=== PATIENT | female | born 1980 | race Caucasian/White ===

== ENCOUNTER 2020-06-13 16:43 | Inpatient (IN) | payer OTHER ==
[~2020-06-13] VITALS: Ht 162.6 cm; Wt 110.2 kg
[2020-06-13] MEDS ORDERED: DEXAMETHASONE SOD PHOSPHATE 10 MG/ML VIAL IV ONE (17:00)
--- NOTE | 2020-06-13 17:00 | NUR ---
[email or web address] home, worsening cough/sob. sts "passed out" this am. covid + last . On room air, breathing evenly and unlabored. Connected to the monitor and pulse ox. Kept comfortable, will continue to monitor accordingly.
[2020-06-13] MEDS ORDERED: DEXAMETHASONE SOD PHOSPHATE 10 MG/ML VIAL ONE (17:11)
[2020-06-13 17:28] LABS: ABG BASE EXCESS -1.1 mmol/L; ABG OXYGEN SATURATION 97.2 % (92.0-98.5); ABG PCO2 31.6 mmHg (35.0-45.0); ABG PH 7.458 (7.350-7.450); ABG PO2 99.7 mmHg (75.0-100.0); AaDO2 62.7 mmHg; COHb 0.3 % (0.5-1.5); MetHb 0.4 % (0.0-1.5); O2Hb 96.5 % (94.0-97.0); SITE, ABG Right Radial; VENT MODE, BG NASAL CANNULA
[2020-06-13] MEDS ORDERED: MONT10TA22 PO (17:34)
[2020-06-13] MEDS ORDERED: FOLI0.8T PO (17:34)
[2020-06-13] MEDS ORDERED: LEVO50TA8 PO (17:34)
[2020-06-13] MEDS ORDERED: FLUO40CA49 PO (17:34)
[2020-06-13] MEDS ORDERED: LOSA50TA39 PO (17:34)
[2020-06-13 18:05] LABS: CREATINE KINASE, TOTAL 13 U/L (26-192); FERRITIN 89 ng/mL (8-388)
--- NOTE | 2020-06-13 18:10 | NUR ---
URINE SAMPLE SENT TO LAB
[2020-06-13 18:19] LABS: BILIRUBIN,URINE Negative (NEGATIVE); COLOR,URINE YELLOW (YELLOW); LEUKOCYTE ESTERASE ,URINE Negative (NEGATIVE); NITRITE, URINE Negative (NEGATIVE); PH,URINE 6.5 (5.0-8.0); PROTEIN,URINE 30 mg/dl (NEGATIVE); UGLUCOSE Negative (NEGATIVE)
[2020-06-13] MEDS ORDERED: MAGNESIUM HYDROXIDE 30 ML UDC PO PRN (18:30)
[2020-06-13] MEDS ORDERED: ZOLPIDEM TARTRATE 5 MG TABLET PO PRN (18:30)
[2020-06-13] MEDS ORDERED: ONDANSETRON HCL/PF 4 MG/2 ML VIAL IVP PRN (18:30)
[2020-06-13] MEDS ORDERED: Z GUARD REMEDY 2 OZ OINT TP PRN (18:30)
[2020-06-13] MEDS ORDERED: HYDROCODONE/APAP 5/325MG TABLET PO PRN (18:30)
[2020-06-13 18:32] LABS: C-REACTIVE PROTEIN 11.2 mg/dL (0.0-0.9)
[2020-06-13 18:34] LABS: BASOPHILS # (AUTO) 0.1 /CMM (0.0-0.2); BASOPHILS % (AUTO) 0.3 % (0.0-2.0); EOSINOPHILS % (AUTO) 0.1 % (0.0-6.0); HEMATOCRIT 40 % (33-45); HEMOGLOBIN 13.2 g/dL (11.5-14.8); LYMPHOCYTES # (AUTO) 1.6 /CMM (0.8-4.8); LYMPHOCYTES % (AUTO) 10.5 % (20.0-44.0); MEAN CORPUSCULAR HGB CONC 33 g/dl (31.0-36.0); MEAN CORPUSCULAR VOLUME 88 fL (82-100); MONOCYTES # (AUTO) 0.4 /CMM (0.1-1.30); MONOCYTES % (AUTO) 2.6 % (2.0-12.0); NEUTROPHILS # (AUTO) 13.5 /CMM (1.8-8.9); NEUTROPHILS % (AUTO) 86.5 % (43.0-81.0); PLATELET COUNT (AUTO) 236 /CMM (150-450); RED BLOOD CELL COUNT(AUTO) 4.57 MIL/uL (4.0-5.2); WHITE BLOOD COUNT (AUTO) 15.6 K/uL (4.3-11.0)
[2020-06-13 18:39] LABS: CALCIUM, SERUM 8.2 mg/dL (8.5-10.1); CARBON DIOXIDE 27 mmol/L (21-32); CHLORIDE 99 mmol/L (98-107); GLUCOSE 129 mg/dL (74-106); POTASSIUM 3.3 mmol/L (3.5-5.1); SODIUM SERUM 137 mmol/L (136-145); UREA NITROGEN, BLOOD 11 mg/dL (7-18)
[2020-06-13 18:49] LABS: D-DIMER 0.53 mg/L(FEU (0.17-0.50)
--- NOTE | 2020-06-13 18:51 | NUR ---
LAB CALLED LACTIC ACID 2.7 SLIM MARTINEZ
[2020-06-13 18:53] LABS: ALANINE AMINOTRANSFERASE 30 U/L (12-78); ALBUMIN 2.8 g/dL (3.4-5.0); ALKALINE PHOSPHATASE 125 U/L (46-116); ASPARTATE AMINOTRANSFERASE 26 U/L (15-37); B-TYPE NATRIURETIC PEPTIDE 82 PG/ML (0-125); BILIRUBIN,TOTAL 0.2 mg/dL (0.2-1.0); TOTAL PROTEIN, SERUM 7.3 g/dL (6.4-8.2)
[2020-06-13 20:42] LABS: BILIRUBIN,DIRECT 0.1 mg/dL (0.0-0.2)
[2020-06-13] MEDS ORDERED: ENOXAPARIN SODIUM 40 MG/0.4 ML DISP.SYRIN SQ SCH (23:00)
--- NOTE | 2020-06-14 01:36 | NUR ---
BED ASSIGNMENT 113-2
[2020-06-14] MEDS ORDERED: ENOXAPARIN SODIUM 40 MG/0.4 ML DISP.SYRIN SQ ONE (02:30)
[2020-06-14 02:40] VITALS: BP 146/76
--- NOTE | 2020-06-14 02:42 | NUR ---
REPORT GIVEN TO VIC STEINBERG FOR JULISA PT TRANSPORTED TO 1ST FLOOR
--- NOTE | 2020-06-14 02:55 | NUR ---
CLEANING SPECIALIST NOTES, RECEIVED 40 YO FEMALE ADMITTED FROM ER VIA STRETCHER, UNDER MEDICAL CARE OF RAMON CHAPA WITH ADMITTING DX OF HYPOXIC RESPIRATORY FAILURE, PATIENT A/O X4 ABLE TO VERBALIZE NEEDS AND CONCERNS, BREATHING EVEN AND UNLABORED, ON 4LPM VIA NC 2I5 O2 SAT LEVEL MID 90S, SOB AND COUGH WITH EXCURSION, WHEN PATIENT MOVED FROM GURNEY TO BED BECAME SOB, O2 STABLE, ATTACHED TO TELE MONITOR AND NSR IN TELE MONITOR WITH HR 70S, PIV IN LEFT AC 20G, PATENT AND INTACT, SKIN INTACT, PATIENT SUPPOSE TO HAVE REMDESIVIR IV, NOT AVAILABLE AT THIS TIME, MATERIAL HANDLER FLOORPERSON LINDSAY AWARE, WILL FOLLOW UP IN AM WITH PHARMACY, WILL CONTINUE TO MONITOR CLOSELY
--- NOTE | 2020-06-14 06:35 | NUR ---
MACHINE PRECISION ETCHER CLOSING NOTES, PATIENT IN BED ASLEEP, AROUSES TO VERBAL STIMULI, BREATHING EVEN AND UNLABORED, ON 4LPM VIA NC WITH O2 SAT LEVEL MID 90S DURING THE REST OF THE NIGHT, SOB AND COUGH WITH EXERTION , NSR IN TELE MONITOR WITH HR 70S, PIV IN LEFT AC 20G, PATENT AND INTACT, SKIN INTACT, CALL LIGHT W/I REACH, NO SIGNIFICANT CHANGE IN CONDITION DURING THE REST OF THE NIGHT, WILL ENDORSE CONTINUITY OF CARE TO ONCOMING NURSE.
[2020-06-14 06:51] LABS: BASOPHILS % (AUTO) 0.2 % (0.0-2.0); HEMATOCRIT 39 % (33-45); LYMPHOCYTES # (AUTO) 1.2 /CMM (0.8-4.8); LYMPHOCYTES % (AUTO) 7.2 % (20.0-44.0); MEAN CORPUSCULAR HGB CONC 33 g/dl (31.0-36.0); MEAN CORPUSCULAR VOLUME 88 fL (82-100); MONOCYTES # (AUTO) 0.5 /CMM (0.1-1.30); MONOCYTES % (AUTO) 2.9 % (2.0-12.0); NEUTROPHILS # (AUTO) 15.1 /CMM (1.8-8.9); NEUTROPHILS % (AUTO) 89.7 % (43.0-81.0); PLATELET COUNT (AUTO) 254 /CMM (150-450); RED BLOOD CELL COUNT(AUTO) 4.45 MIL/uL (4.0-5.2); WHITE BLOOD COUNT (AUTO) 16.8 K/uL (4.3-11.0)
--- NOTE | 2020-06-14 07:30 | NUR ---
LAP POLISHER OPENING NOTES, PATIENT IN BED ASLEEP, AROUSES TO VERBAL STIMULI, BREATHING EVEN AND UNLABORED, ON 4LPM VIA NC WITH O2 SAT LEVEL MID 90S DURING THE REST OF THE NIGHT, SOB AND COUGH WITH EXERTION , NSR IN TELE MONITOR WITH HR 70S, PIV IN LEFT AC 20G, PATENT AND INTACT, SKIN INTACT, CALL LIGHT W/I REACH, NO SIGNIFICANT CHANGE IN CONDITION DURING THE REST OF THE NIGHT, WILL CONTINUE TO MONITOR AND PROVIDE CARE
[2020-06-14 07:35] LABS: CALCIUM, SERUM 8.3 mg/dL (8.5-10.1); CREATININE 0.7 mg/dL (0.6-1.3); MAGNESIUM 2.1 mg/dL (1.8-2.4); PHOSPHORUS 4.3 mg/dL (2.5-4.9); POTASSIUM 3.9 mmol/L (3.5-5.1)
[2020-06-14] MEDS: DEXAMETHASONE SOD PHOSPHATE 10 MG/ML VIAL IV SCH (08:23)
[2020-06-14] MEDS: LEVOTHYROXINE SODIUM 50 MCG TABLET PO SCH (08:23)
[2020-06-14] MEDS: MONTELUKAST SODIUM (10MG) 10 MG TABLET PO SCH (08:23)
[2020-06-14] MEDS: FOLIC ACID 1 MG TABLET PO SCH (08:23)
[2020-06-14] MEDS: ACETAMINOPHEN 325 MG TABLET PO PRN ×2 (08:23→21:32)
[2020-06-14] MEDS: LOSARTAN POTASSIUM 50 MG TABLET PO SCH (08:23)
[2020-06-14] MEDS ORDERED: REMDESIVIR (CHARGED) 200 MG, *LOADING DOSE 1 EA in IV NS 0.9% 210 ML IV ONE (09:00)
[2020-06-14 10:00] VITALS: BP 153/89
[2020-06-14] MEDS: APIXABAN 5 MG TABLET PO SCH ×2 (10:15→21:09)
[2020-06-14 12:00] VITALS: BP 148/73
[2020-06-14 16:00] VITALS: BP 137/78
--- NOTE | 2020-06-14 18:36 | NUR ---
PATIENT IN BED RESTING. PATEINT A&O X4. N 4L O2 VIA NC, SATURATING WELL >94%. PATIENT ON ADJUNCT MATHEMATICS INSTRUCTOR, NSR NOTED. PATIENT IV ACCESS IN LEFT AC 20G, PATENT AND INTACT. PATIENT SAFETY MEASURES MAINTAINED. CALL LIGHT WITHIN REACH. WILL ENDORSE PLAN OF CARE TO ONCOMING SHIFT.
[2020-06-14 20:00] VITALS: BP 125/66
--- NOTE | 2020-06-14 20:00 | NUR ---
RN NOTE RECEIVED PT IN BED A/A/O X4. PT IS ON 4 L VIA NC SATING 93%. PT HAS UNLABORED BREATHING. PT IS ON TELE MONITOR SHOWING SR IN 90s. SAFETY MEASURES IN PLACE.
[2020-06-15] VITALS (8 sets, daily range): BP systolic 127–145; BP diastolic 64–88
--- NOTE | 2020-06-15 02:05 | NUR ---
0205 CRITICAL POSITIVE COVID PCR RESULT RELAYED TO DR. VALLADARES WITH NO ORDERS MADE.
[2020-06-15 06:04] LABS: BASOPHILS % (AUTO) 0.1 % (0.0-2.0); HEMATOCRIT 38 % (33-45); HEMOGLOBIN 12.8 g/dL (11.5-14.8); LYMPHOCYTES # (AUTO) 1.9 /CMM (0.8-4.8); LYMPHOCYTES % (AUTO) 19.2 % (20.0-44.0); MEAN CORPUSCULAR HGB CONC 34 g/dl (31.0-36.0); MEAN CORPUSCULAR VOLUME 87 fL (82-100); MONOCYTES # (AUTO) 0.7 /CMM (0.1-1.30); NEUTROPHILS # (AUTO) 7.4 /CMM (1.8-8.9); NEUTROPHILS % (AUTO) 73.7 % (43.0-81.0); PLATELET COUNT (AUTO) 272 /CMM (150-450); RED BLOOD CELL COUNT(AUTO) 4.32 MIL/uL (4.0-5.2); WHITE BLOOD COUNT (AUTO) 10.1 K/uL (4.3-11.0)
[2020-06-15 06:51] LABS: ALBUMIN 2.5 g/dL (3.4-5.0); BILIRUBIN,DIRECT 0.1 mg/dL (0.0-0.2); BILIRUBIN,TOTAL 0.2 mg/dL (0.2-1.0); CALCIUM, SERUM 8.8 mg/dL (8.5-10.1); CREATININE 0.8 mg/dL (0.6-1.3); MAGNESIUM 1.9 mg/dL (1.8-2.4); PHOSPHORUS 3.9 mg/dL (2.5-4.9); TOTAL PROTEIN, SERUM 7.1 g/dL (6.4-8.2)
--- NOTE | 2020-06-15 07:19 | NUR ---
RN NOTE NO ACUTE CHANGES REPORT GIVEN TO INCOMING SHIFT FOR JULISA
--- NOTE | 2020-06-15 08:00 | NUR ---
EXTERMINATOR HELPER OPENING NOTES, PATIENT IN BED .AWAKE ALERT AROUSES TO VERBAL STIMULI, BREATHING EVEN AND UNLABORED, ON 4LPM VIA NC WITH O2 SAT LEVEL MID 95%, NO SOB BOTED WITH OCCASIONAL COUGH NOTED , NSR IN TELE MONITOR WITH HR 67, HL IN LEFT AC 20G, PATENT AND INTACT,FLUSHED WELL SKIN INTACT, CALL LIGHT W/I REACH, N WILL CONTINUE TO MONITOR AND PROVIDE CARE, PLAN OF CARE DISCUSSED WITH PATIENT, ABLE TO EAT BREAKFAST WELL
[2020-06-15] MEDS: DEXAMETHASONE SOD PHOSPHATE 10 MG/ML VIAL IV SCH (08:23)
[2020-06-15] MEDS: FOLIC ACID 1 MG TABLET PO SCH (08:23)
[2020-06-15] MEDS: APIXABAN 5 MG TABLET PO SCH ×2 (08:24→20:50)
[2020-06-15] MEDS: MONTELUKAST SODIUM (10MG) 10 MG TABLET PO SCH (08:24)
[2020-06-15] MEDS: LOSARTAN POTASSIUM 50 MG TABLET PO SCH (08:24)
[2020-06-15] MEDS: LEVOTHYROXINE SODIUM 50 MCG TABLET PO SCH (08:25)
[2020-06-15] MEDS: REMDESIVIR (CHARGED) 100 MG in IV NS 0.9% 100 ML IV SCH (09:17)
--- NOTE | 2020-06-15 11:35 | NUR ---
BRANCH LOGISTICS SUPERVISOR NOTE SATURATION NOW 91% SAMMI NAVARRO RN PARTS REMOVER NOTIFIED OK TO INCREASE TO 5L OF 02 AND C\O COUGH DR NAVARRO NOTIFIED
--- NOTE | 2020-06-15 13:00 | NUR ---
QUANTITATIVE ANALYST NOTE ABLE TO BSC , KEEP CLEAN DRY ABLE TO URINATE WELL
--- NOTE | 2020-06-15 15:09 | NUR ---
STRATEGY DIRECTOR NOTE CONSENT FOR CONVALESCENT PLASMA OBTAINED, WILL F\U
[2020-06-15] MEDS: GUAIFENESIN/CODEINE 10 ML UDC PO PRN (15:50)
--- NOTE | 2020-06-15 15:55 | NUR ---
VETERINARY MICROBIOLOGIST NOTE SPOKE WITH SAMMI NAVARRO RN PLAYROOM ATTENDANT ABOUT FLU VACCINE , NO VACCINE AT THIS TIME Addendum: 06/15/20 at 1612 by KETURAH FIGUEROA RN ROBITUSSIN PRN GIVEN FOR COUGH WILL F\U
--- NOTE | 2020-06-15 18:41 | NUR ---
CLIENT RELATIONSHIP MANAGER NOTE ABLE TO EAT SELF , NO SOB NOTED AT THIS TIME, ON 5L NC ,SATURATION 93% AT THIS TIME ,WILL CONT TO MONITORM CALL LIGHT WITHIN REACH,
--- NOTE | 2020-06-15 19:30 | NUR ---
RN OPENING NOTES: RECEIVED PT A/OX4 IN BED RESTING COMFORTABLY. PATIENT IN NO S/SX OF ACUTE DISTRESS AT THIS TIME. NO SOB NOTED. PATIENT'S BREATHING IS EVEN AND UNLABORED. PATIENT IS ON 5L OF OXYGEN VIA NC; TOLERATING WELL. PATIENT ON TELE MONITORING READING SINUS RHYTHM HR IS @60 AT THE TIME OF RECEIVED. PATIENT ON 2G SODIUM DIET; TOLERATES WELL. NOTED IV SITE ON L AC #20; PATENT, INTACT AND FLUSHING WELL; NO S/S OF INFECTION OR INFILTRATION. SAFETY MEASURES HAVE BEEN PROVIDED AND IMPLEMENTED. PATIENT BED ALARM IS ON. HEAD OF BED ELEVATED. BED IS LOCKED, IN LOWEST POSITION AND SIDE RAILS UP. CALL LIGHT WITHIN REACH OF THE PATIENT. APPLICABLE ISOLATION PRECAUTIONS IN PLACE. WILL CONTINUE TO MONITOR AND REASSESS FOR ANY CHANGES AND WILL CARRY OUT ANY ONGOING AND ACTIVE MD ORDER.
[2020-06-15] MEDS: ACETAMINOPHEN 325 MG TABLET PO PRN (20:42)
--- NOTE | 2020-06-15 23:15 | NUR ---
RN NOTES STARTED TRANSFUSION OF CONVALESCENT PLASMA ORDERED. INITIAL VITAL SIGNS TAKEN; WNL. WILL CONTINUE TO MONITOR FOR ANY TRANSFUSION REACTION AND ADDRESS NEEDED DENTIST/OWNER MADE AWARE.
[2020-06-16] VITALS (8 sets, daily range): BP systolic 131–162; BP diastolic 35–98
--- NOTE | 2020-06-16 01:00 | NUR ---
RN NOTES ENDED INFUSION (CONVALESCENT PLASMA) AT 0100, NO TRANSFUSION REACTION NOTED. VITAL SIGNS WNL. IT SYSTEMS ANALYST MADE AWARE. WILL CONTINUE TO MONITOR AND REASSESS FOR ANY TRANSFUSION REACTION POST PROCEDURE.
[2020-06-16 06:33] LABS: BASOPHILS % (AUTO) 0.1 % (0.0-2.0); EOSINOPHILS % (AUTO) 0.1 % (0.0-6.0); HEMATOCRIT 38 % (33-45); HEMOGLOBIN 12.6 g/dL (11.5-14.8); LYMPHOCYTES # (AUTO) 2.3 /CMM (0.8-4.8); LYMPHOCYTES % (AUTO) 26.7 % (20.0-44.0); MEAN CORPUSCULAR HGB CONC 34 g/dl (31.0-36.0); MEAN CORPUSCULAR VOLUME 87 fL (82-100); MONOCYTES # (AUTO) 0.8 /CMM (0.1-1.30); MONOCYTES % (AUTO) 9.1 % (2.0-12.0); NEUTROPHILS # (AUTO) 5.4 /CMM (1.8-8.9); PLATELET COUNT (AUTO) 324 /CMM (150-450); RED BLOOD CELL COUNT(AUTO) 4.31 MIL/uL (4.0-5.2); WHITE BLOOD COUNT (AUTO) 8.5 K/uL (4.3-11.0)
--- NOTE | 2020-06-16 06:51 | NUR ---
RN CLOSING NOTE: PATIENT REMAINS IN ROOM IN NO SIGNS OF RESPIRATORY DISTRESS, PATIENT STILL ON 5L VIA NC;TOLERATING WELL SATURATING @ >95% SP02. SAFETY MEASURES IMPLEMENTED, BED IN LOWEST POSITION, LOCKED, SIDE RAILS UP, CALL LIGHT WITHIN REACH. ALL NEEDS AND ORDERS ADDRESSED DURING THE SHIFT. IV ACCESS MAINTAINED INTACT, SECURED AND FLUSHING WELL. ALL DUE MEDS GIVEN ORDERED & SCHEDULED ; PATIENT TOLERATED WELL. PATIENT KEPT CLEAN AND COMFORTABLE WITHIN THE SHIFT. PATIENT ENDORSED TO INCOMING SHIFT RN WITH STABLE VITAL SIGN AND FOR CONTINUITY OF CARE.
[2020-06-16 07:20] LABS: ALBUMIN 2.5 g/dL (3.4-5.0); BILIRUBIN,DIRECT 0.1 mg/dL (0.0-0.2); BILIRUBIN,TOTAL 0.2 mg/dL (0.2-1.0); CALCIUM, SERUM 8.6 mg/dL (8.5-10.1); CREATININE 0.7 mg/dL (0.6-1.3); POTASSIUM 3.9 mmol/L (3.5-5.1)
--- NOTE | 2020-06-16 07:30 | NUR ---
DIRECTOR NEWS OPENING NOTE PT LAYING IN BED COMFORTABLY, A/Ox4, NC 5LPM, NO SIGNS OF RESP DISTRESS OR SOB, BREATHING EVEN AND UNLABORED, SPO2 OF 95%. PT ABLE TO USE BEDSIDE COMMODE 1 PERSON ASSIST. PT HAS L AC #20, FLUSHED, PATENT, INTACT, WITH NO SIGNS OF INFECTION OR INFILTRATION. NO SKIN ISSUES, DENIES PAIN. PT RECEIVED CONV PLASMA OVER NIGHT, WILL HAVE REMDESIVIR SHORTLY. ALL SAFETY PRECAUTIONS IN PLACE. WILL CONT TO MONITOR
[2020-06-16] MEDS: MONTELUKAST SODIUM (10MG) 10 MG TABLET PO SCH (09:11)
[2020-06-16] MEDS: REMDESIVIR (CHARGED) 100 MG in IV NS 0.9% 100 ML IV SCH (09:11)
[2020-06-16] MEDS: LEVOTHYROXINE SODIUM 50 MCG TABLET PO SCH (09:11)
[2020-06-16] MEDS: FOLIC ACID 1 MG TABLET PO SCH (09:12)
[2020-06-16] MEDS: LOSARTAN POTASSIUM 50 MG TABLET PO SCH (09:12)
[2020-06-16] MEDS: DEXAMETHASONE SOD PHOSPHATE 10 MG/ML VIAL IV SCH (09:12)
[2020-06-16] MEDS: APIXABAN 5 MG TABLET PO SCH ×2 (09:14→21:11)
[2020-06-16] MEDS: ACETAMINOPHEN 325 MG TABLET PO PRN (09:25)
--- NOTE | 2020-06-16 10:00 | NUR ---
RN NOTE PT REPORT GIVEN TO TAO GREGORIO, FOR JULISA
--- NOTE | 2020-06-16 19:20 | NUR ---
tele substation operator helper generation: notes still awaiting for ambulance to order picker/assembler the pt. report given to berhane (mehdi) for continuity of care.
[2020-06-16] MEDS: GUAIFENESIN/CODEINE 10 ML UDC PO PRN (21:09)
[2020-06-17] VITALS: BP 140/85
[2020-06-17 04:00] VITALS: BP 154/84
--- NOTE | 2020-06-17 06:13 | NUR ---
CASKET INSPECTOR CLOSING NOTE PT IN BED A/Ox4, NC 5LPM, NO SIGNS OF RESP DISTRESS OR SOB, BREATHING EVEN AND UNLABORED, SPO2 OF 97%. PT USING BEDSIDE COMMODE INDEPENDENTLY. PT HAS L AC #20, FLUSHED, PATENT, INTACT, WITH NO SIGNS OF INFECTION OR INFILTRATION. NO SKIN ISSUES, DENIES PAIN. ALL SAFETY PRECAUTIONS IN PLACE. BED DOWN LOCKED. NO SIGNIFICANT CHANGE OVERNIGHT. WILL ENDORSE TO ONCOMING SHIFT.
[2020-06-17 06:14] LABS: BASOPHILS % (AUTO) 0.2 % (0.0-2.0); EOSINOPHILS % (AUTO) 0.1 % (0.0-6.0); HEMATOCRIT 40 % (33-45); HEMOGLOBIN 13.3 g/dL (11.5-14.8); LYMPHOCYTES # (AUTO) 2.4 /CMM (0.8-4.8); LYMPHOCYTES % (AUTO) 25.3 % (20.0-44.0); MEAN CORPUSCULAR HGB CONC 33 g/dl (31.0-36.0); MEAN CORPUSCULAR VOLUME 88 fL (82-100); MONOCYTES # (AUTO) 0.8 /CMM (0.1-1.30); MONOCYTES % (AUTO) 8.4 % (2.0-12.0); NEUTROPHILS # (AUTO) 6.3 /CMM (1.8-8.9); PLATELET COUNT (AUTO) 371 /CMM (150-450); RED BLOOD CELL COUNT(AUTO) 4.53 MIL/uL (4.0-5.2); WHITE BLOOD COUNT (AUTO) 9.5 K/uL (4.3-11.0)
[2020-06-17 07:29] LABS: ALBUMIN 2.8 g/dL (3.4-5.0); BILIRUBIN,DIRECT 0.1 mg/dL (0.0-0.2); BILIRUBIN,TOTAL 0.3 mg/dL (0.2-1.0); CREATININE 0.8 mg/dL (0.6-1.3); POTASSIUM 4.2 mmol/L (3.5-5.1); TOTAL PROTEIN, SERUM 7.4 g/dL (6.4-8.2)
--- NOTE | 2020-06-17 07:30 | NUR ---
RN OPENING NOTE PATIENT IS IN BED WITH HOB AT SEMI FOWLERS POSITION. PATIENT IS AOX4. CURRENTLY STABLE ON 5L NC. SKIN IS INTACT. LAC#20 IS PATENT, INTACT, AND HAS NO SIGNS OF INFILTRATION. BED IS LOCKED IN THE LOWEST POSITION, CALL DURANT WITHIN REACH, 3 GUARD RAILS RAISED, AND ALL HOSPITAL SAFETY PRECAUTIONS ARE BEING FOLLOWED. WILL CONTINUE TO MONITOR THROUGHOUT SHIFT.
[2020-06-17 08:00] VITALS: BP 134/75
[2020-06-17] MEDS: LEVOTHYROXINE SODIUM 50 MCG TABLET PO SCH (08:29)
[2020-06-17] MEDS: APIXABAN 5 MG TABLET PO SCH ×2 (08:30→20:39)
[2020-06-17] MEDS: LOSARTAN POTASSIUM 50 MG TABLET PO SCH (08:30)
[2020-06-17] MEDS: MONTELUKAST SODIUM (10MG) 10 MG TABLET PO SCH (08:31)
[2020-06-17] MEDS: DEXAMETHASONE SOD PHOSPHATE 10 MG/ML VIAL IV SCH (08:31)
[2020-06-17] MEDS: FOLIC ACID 1 MG TABLET PO SCH (08:31)
[2020-06-17] MEDS: REMDESIVIR (CHARGED) 100 MG in IV NS 0.9% 100 ML IV SCH (09:54)
[2020-06-17 12:00] VITALS: BP 134/78
[2020-06-17 16:00] VITALS: BP 152/81
--- NOTE | 2020-06-17 18:48 | NUR ---
RN CLOSING NOTE PATIENT IS IN BED WITH HOB AT SEMI FOWLERS POSITION. PATIENT IS AOX4. CURRENTLY STABLE ON 5L NC. SKIN IS INTACT. LAC#20 IS PATENT, INTACT, AND HAS NO SIGNS OF INFILTRATION. BED IS LOCKED IN THE LOWEST POSITION, CALL DURANT WITHIN REACH, 3 GUARD RAILS RAISED, AND ALL HOSPITAL SAFETY PRECAUTIONS ARE BEING FOLLOWED. WILL ENDORSE TO FURRIER APPRENTICE RN.
--- NOTE | 2020-06-17 19:20 | NUR ---
RN NOTE RECEIVED PT AWAKE AND ALERT AND ORIENTED X 4 IN SEMI FOLWER'S POSITION. ON 5L NASAL CANNULA. RESPIRATIONS EVEN AND UNLABORED. DENIES PAIN OR DISCOMFORT. ABLE TO USE THE BATHROOM WITH STANDBY ASSIST. IV ON LEFT AC PATENT AND WITHOUT COMPLICATIONS NOTED WHEN FLUSHED. PLAN OF CARE DISCUSSED WITH PATIENT. CALL LIGHT WITHIN REACH, SAFETY MEASURES IMPLEMENTED PER PROTOCOL, BED LOCKED AND IN LOW POSITION, SIDE RAILS UP X 2, WILL MONITOR PATIENT AND CARRY ACTIVE MD ORDERS.
[2020-06-17 20:00] VITALS: BP 138/76
[2020-06-18] VITALS: BP_SYST 125; BP_SYST 138; BP_DIAS 74; BP_DIAS 76
--- NOTE | 2020-06-18 02:00 | NUR ---
RN NOTE PT SLEEPING COMFORTABLY IN BED WITHOUT SIGNS OF DISTRESS OR DISCOMFORT, WILL CONTINUE TO MONITOR.
[2020-06-18 04:00] VITALS: BP 131/77
[2020-06-18 06:03] LABS: BASOPHILS % (AUTO) 0.2 % (0.0-2.0); EOSINOPHILS % (AUTO) 0.3 % (0.0-6.0); HEMATOCRIT 40 % (33-45); HEMOGLOBIN 13.6 g/dL (11.5-14.8); LYMPHOCYTES # (AUTO) 2.7 /CMM (0.8-4.8); LYMPHOCYTES % (AUTO) 24.7 % (20.0-44.0); MEAN CORPUSCULAR HGB CONC 34 g/dl (31.0-36.0); MEAN CORPUSCULAR VOLUME 86 fL (82-100); MONOCYTES # (AUTO) 1.2 /CMM (0.1-1.30); MONOCYTES % (AUTO) 10.7 % (2.0-12.0); NEUTROPHILS # (AUTO) 6.9 /CMM (1.8-8.9); NEUTROPHILS % (AUTO) 64.1 % (43.0-81.0); PLATELET COUNT (AUTO) 404 /CMM (150-450); RED BLOOD CELL COUNT(AUTO) 4.66 MIL/uL (4.0-5.2); WHITE BLOOD COUNT (AUTO) 10.8 K/uL (4.3-11.0)
--- NOTE | 2020-06-18 06:47 | NUR ---
RN NOTE NO ACUTE CHANGES OBSERVED OVERNIGHT. RESTING IN BED AWAKE AND ALERT AND ORIENTED X 4 IN SEMI JIMENEZ'S POSITION. ON 5L NASAL CANNULA. RESPIRATIONS EVEN AND UNLABORED. DENIES PAIN OR DISCOMFORT. IV ON LEFT AC PATENT AND FLUSHED. CALL LIGHT WITHIN REACH, SAFETY MEASURES IMPLEMENTED PER PROTOCOL, BED LOCKED AND IN LOW POSITION, SIDE RAILS UP X 2, WILL ENDORSE TO MORNING RN FOR JULISA.
[2020-06-18 07:01] LABS: ALBUMIN 2.8 g/dL (3.4-5.0); BILIRUBIN,DIRECT 0.1 mg/dL (0.0-0.2); BILIRUBIN,TOTAL 0.2 mg/dL (0.2-1.0); CALCIUM, SERUM 8.9 mg/dL (8.5-10.1); CREATININE 0.8 mg/dL (0.6-1.3); POTASSIUM 4.3 mmol/L (3.5-5.1); TOTAL PROTEIN, SERUM 7.3 g/dL (6.4-8.2)
--- NOTE | 2020-06-18 07:25 | NUR ---
RN OPENING NOTE PATIENT RECEIVED IN BED WITH HOB AT SEMI FOWLERS POSITION. PATIENT IS AOX4. CURRENTLY NO COMPLAINTS OF SOB OR SIGNS OF RESPIRATORY DISTRESS. PATIENT IS ON 02 THERAPY VIA NC AT 5 LPM. SKIN IS INTACT. LAC#20 IS PATENT, INTACT, AND HAS NO SIGNS OF INFILTRATION. ISOLATION PRECAUTIONS MAINTAINED. SAFETY PRECAUTIONS IMPLEMENTED, BED IS LOCKED IN THE LOWEST POSITION, SIDE RAILS UP X2, BED ALARM ON, CALL LIGHT WITHIN REACH. WILL CONTINUE TO MONITOR CLIENT AND PROVIDE CARE THROUGHOUT SHIFT.
[2020-06-18 08:00] VITALS: BP 125/79
[2020-06-18 09:02] LABS: BAND % (MANUAL) 1 % (0.0-5.0); EOSINOPHILS % (MANUAL) 1 % (0-4); LYMPHOCYTES % (MANUAL) 24 % (16-48); MONOCYTES % (MANUAL) 8 % (0-11.0); NEUTROPHILS % (MANUAL) 66 (42-76)
[2020-06-18] MEDS: LEVOTHYROXINE SODIUM 50 MCG TABLET PO SCH (09:26)
[2020-06-18] MEDS: REMDESIVIR (CHARGED) 100 MG in IV NS 0.9% 100 ML IV SCH (09:28)
[2020-06-18] MEDS: DEXAMETHASONE SOD PHOSPHATE 10 MG/ML VIAL IV SCH (09:28)
[2020-06-18] MEDS: LOSARTAN POTASSIUM 50 MG TABLET PO SCH (09:29)
[2020-06-18] MEDS: FOLIC ACID 1 MG TABLET PO SCH (09:29)
[2020-06-18] MEDS: MONTELUKAST SODIUM (10MG) 10 MG TABLET PO SCH (09:29)
[2020-06-18] MEDS: APIXABAN 5 MG TABLET PO SCH ×2 (09:32→20:53)
[2020-06-18 12:00] VITALS: BP 118/72
[2020-06-18 16:00] VITALS: BP 140/82
--- NOTE | 2020-06-18 18:34 | NUR ---
RN CLOSING NOTE PATIENT IN BED WITH HOB AT SEMI FOWLERS POSITION. PATIENT IS AOX4. CURRENTLY NO COMPLAINTS OF SOB OR SIGNS OF RESPIRATORY DISTRESS. PATIENT IS ON 02 THERAPY VIA NC AT 5 LPM. SKIN IS INTACT. LAC#20 IS PATENT, INTACT, AND HAS NO SIGNS OF INFILTRATION. ISOLATION PRECAUTIONS MAINTAINED. SAFETY PRECAUTIONS IMPLEMENTED, BED IS LOCKED IN THE LOWEST POSITION, SIDE RAILS UP X2, BED ALARM ON, CALL LIGHT WITHIN REACH. WILL ENDORSE CONTINUATION OF CARE TO UPCOMING SHIFT.
[2020-06-18 20:00] VITALS: BP 126/72
--- NOTE | 2020-06-18 20:00 | NUR ---
RN NOTE RECEIVED PT IN BED A/O X4, ON 4 L NC SATING 96%, HAS UNLABORED BREATHING. ON TELE MONITOR SHOWING SR WITH HR RATE IN 70. SAFETY MEASURES IN PLACE.
[2020-06-18] MEDS: ACETAMINOPHEN 325 MG TABLET PO PRN (20:57)
[2020-06-19] VITALS: BP 125/72
[2020-06-19 04:00] VITALS: BP 120/76
--- NOTE | 2020-06-19 07:30 | NUR ---
RN PT REMAINED STABLE NO ACUTE CHANGES DURING MY SHIFT REPORT GIVEN TO INCOMING SHIFT FOR JULISA.
[2020-06-19 08:00] VITALS: BP 145/96
[2020-06-19] MEDS: LEVOTHYROXINE SODIUM 50 MCG TABLET PO SCH (08:23)
[2020-06-19] MEDS: DEXAMETHASONE SOD PHOSPHATE 10 MG/ML VIAL IV SCH (08:23)
[2020-06-19] MEDS: LOSARTAN POTASSIUM 50 MG TABLET PO SCH (08:24)
[2020-06-19] MEDS: FOLIC ACID 1 MG TABLET PO SCH (08:25)
[2020-06-19] MEDS: MONTELUKAST SODIUM (10MG) 10 MG TABLET PO SCH (08:25)
[2020-06-19] MEDS: APIXABAN 5 MG TABLET PO SCH ×2 (08:28→20:01)
[2020-06-19 12:00] VITALS: BP 134/82
[2020-06-19 16:00] VITALS: BP 122/66
--- NOTE | 2020-06-19 18:51 | NUR ---
RN CLOSING NOTE PATIENT IN BED WITH HOB AT SEMI FOWLERS POSITION. PATIENT IS AOX4. CURRENTLY NO COMPLAINTS OF SOB OR SIGNS OF RESPIRATORY DISTRESS. PATIENT IS ON 02 THERAPY VIA NC AT 5 LPM. SKIN IS INTACT. LAC#20 IS PATENT, INTACT, AND HAS NO SIGNS OF INFILTRATION. ISOLATION PRECAUTIONS MAINTAINED. SAFETY PRECAUTIONS IMPLEMENTED, BED IS LOCKED IN THE LOWEST POSITION, SIDE RAILS UP X2, BED ALARM ON, CALL LIGHT WITHIN REACH. WILL ENDORSE CARE TO UPCOMING SHIFT.
--- NOTE | 2020-06-19 19:30 | NUR ---
RN OPENING NOTE RECEIVED PATIENT IN BED RESTING ALERT ORIENTED X4 VERBALLY RESPONSIVE NO SOB NOT ACUTE DISTRESS NOTED,ON 5L OXYGEN VIA NASAL CANNULA, O2:95% AMBULATORY WITH ASSIST,CONTINENT TO BOWEL/BLADDER,IV SITE IS ON LEFT AC INTACT PATENT,BED IN LOW POSITION AND LOCKED,CALL LIGHT WITHIN REACH,SAFETY MEASURE IMPLEMENT,CONTINUE TO MONITOR
[2020-06-19 20:00] VITALS: BP 145/72
--- NOTE | 2020-06-19 21:00 | NUR ---
RN NOTE OXYGEN TITRATE DOWN TO 4L O2:96% CONTINUE TO MONITOR.
[2020-06-20] VITALS: BP 126/77
[2020-06-20 04:00] VITALS: BP 136/77
--- NOTE | 2020-06-20 06:52 | NUR ---
RN CLOSING NOTE PATIENT REMAINS ON ALERT ORIENTED X4 VERBALLY RESPONSIVE NO SOB NOT ACUTE DISTRESS NOTED,IS ON 4L OXYGEN VIA NASAL CANNULA, O2:96% IV SITE IS ON LEFT AC INTACT PATENT,AMBULATORY WITH ASSIST,ALL DUE MEDS GIVEN MD ORDERED KEPT CALL LIGHT WITHIN REACH,SAFETY MEASURE IMPLEMENTED ENDORSE NEXT COMING SHIFT FOR CONTINUATION OF CARE.
--- NOTE | 2020-06-20 07:22 | NUR ---
ms rn received on bed, awake,alert,orientedx4,not in any form of distress, respirations even and unlabored,no sob noted,on 3 liters,saturating 97%,o2 decreased to 2 liters at this time, tolerating at 95-96%,denies pain at this time,will monitor patient.
[2020-06-20 08:00] VITALS: BP 140/70
--- NOTE | 2020-06-20 09:00 | NUR ---
ms harding breakfast served,due meds given,tolerating well.
[2020-06-20] MEDS: FOLIC ACID 1 MG TABLET PO SCH (09:38)
[2020-06-20] MEDS: LOSARTAN POTASSIUM 50 MG TABLET PO SCH (09:39)
[2020-06-20] MEDS: DEXAMETHASONE SOD PHOSPHATE 10 MG/ML VIAL IV SCH (09:40)
[2020-06-20] MEDS: MONTELUKAST SODIUM (10MG) 10 MG TABLET PO SCH (09:40)
[2020-06-20] MEDS: APIXABAN 5 MG TABLET PO SCH ×2 (09:41→20:23)
[2020-06-20] MEDS: LEVOTHYROXINE SODIUM 50 MCG TABLET PO SCH (09:44)
--- NOTE | 2020-06-20 11:00 | NUR ---
ms harding was seen by travon w/ orders made and carried out.
[2020-06-20 13:02] LABS: BILIRUBIN,URINE NEGATIVE (NEGATIVE); COLOR,URINE YELLOW (YELLOW); LEUKOCYTE ESTERASE ,URINE MODERATE (NEGATIVE); NITRITE, URINE NEGATIVE (NEGATIVE); PROTEIN,URINE 30 mg/dl (NEGATIVE); UGLUCOSE NEGATIVE (NEGATIVE); UROBILINOGEN,URINE 0.2 EU/dL (0.2)
[2020-06-20 13:07] LABS: *SPE A/G RATIO 0.7 (0.7-1.7); *SPE ALBUMIN 2.7 g/dL (2.9-4.4); *SPE ALPHA-1-GLOBULIN 0.4 g/dL (0.0-0.4); *SPE ALPHA-2-GLOBULIN 1.2 g/dL (0.4-1.0); *SPE BETA GLOBULIN 1.4 g/dL (0.7-1.3); *SPE M-SPIKE Not Observed g/dL (Not Observed); *SPEGAMMA GLOBULIN 0.9 g/dL (0.4-1.8)
--- NOTE | 2020-06-20 14:51 | NUR ---
PATIENT ROOM AIR SAT AT REST 86%.
[2020-06-20 15:25] LABS: TRIPLE PHOSPHATE CRYSTAL,UR Few /HPF (None Seen)
[2020-06-20 15:26] LABS: BACTERIA,URINE Many /HPF (None Seen)
[2020-06-20 15:27] LABS: SQUAMOUS EPITHELIAL CELL,UR Few /HPF (None Seen)
[2020-06-20 16:00] VITALS: BP 147/77
[2020-06-20] MEDS ORDERED: CEFTRIAXONE 1 G in IV D5W 50 ML IV STA (17:05)
[2020-06-20] MEDS ORDERED: CEPH500C2 PO (17:08)
[2020-06-20] MEDS ORDERED: APIX5TAB PO (17:08)
--- NOTE | 2020-06-20 19:00 | NUR ---
RN OPENING NOTE RECEIVED PATIENT IN BED RESTING ALERT ORIENTED X4 VERBALLY RESPONSIVE NO SOB NOT ACUTE DISTRESS NOTED,ON 1L OXYGEN VIA NASAL CANNULA, O2:95% AMBULATORY WITH ASSIST,CONTINENT TO BOWEL/BLADDER,IV SITE IS ON LEFT AC INTACT PATENT,BED IN LOW POSITION AND LOCKED,CALL LIGHT WITHIN REACH,SAFETY MEASURE IMPLEMENT,CONTINUE TO MONITOR
--- NOTE | 2020-06-20 19:28 | NUR ---
ms rn on bed, atb on, will be discharge after,and o2 delivered,all d/c papers done,endorsed to overnight caregiver.
[2020-06-20 20:00] VITALS: BP 142/79
[2020-06-20] MEDS ORDERED: NITROFURANTOIN/NITROFURAN MAC 100 MG CAPSULE PO SCH (21:00)
--- NOTE | 2020-06-20 21:43 | NUR ---
CERTIFIED NURSING ASSISTANT NOTE O2 TANK WAS DELIVERED FOR THE PT TO TAKE IT HOME. ALSO [facility] ARRIEVED TO TRANSFER THE PT HOME. SENDY NURSE DC THE SL AND DID THE EXIT CARE. ALL THE DISCHARGE INSTRUCTION GIVEN TO PT. HOME KEYS AND BELONGING GIVEN TO THE PT. PT SIGN THE DISCHARGE DOCUMENTS. NO DISTRESS OR DISCOMFORT NOTED. PT DENIES PAIN. PT LEFT THE ROOM VIA GURNEY WITH THE AMBULANCE PERSONAL.
--- NOTE | 2020-06-20 21:45 | NUR ---
RN CLOSING NOTE PATIENT DISCHARGE IN STABLE CONDITION WITH ALL HER BELONGINGS,ALERT ORIENTED X4 VERBALLY RESPONSIVE,NO SOB NOT ACUTE DISTRESS NOTED,SHE IS ON 1L OXYGEN VIA NASAL CANNULA. O2:96% ,GAVE HER [place] FOR HOME,REMOVED IV LINE NO BLEEDING,SHE SIGNED ALL DISCHARGE PAPERS,AND BELONGING,EDUCATED HER REGARDING MEDS AND FOLLOW UP WITH PRIMARY MD,SHE VERBALIZED UNDERSTOOD,SHE LEFT HOSPITAL WITH ACCOMPANIED BY 2EMTS
== END 2020-06-20 21:43 | disposition home or self-care (01) | DRG 177 ==
LOC: ER 16:46 → TRANSITION 20:18 → TELE1 06-14 01:40 → MEDSG1 06-20 11:04
PROVIDERS: ADMIT Nurse Practitioner Acute Care; ATTEND Nurse Practitioner Family
PROC: XW033E5 Introduction of Remdesivir Anti-infective into Peripheral Vein, Percutaneous Approach, New Technology Group 5 (ICD-10-PCS; principal; 2020-06-13)
PROC: XW13325 Transfusion of Convalescent Plasma (Nonautologous) into Peripheral Vein, Percutaneous Approach, New Technology Group 5 (ICD-10-PCS; 2020-06-15)
DX: U07.1 COVID-19 (principal); J96.01 Acute respiratory failure with hypoxia; J12.82 Pneumonia due to coronavirus disease 2019; E44.0 Moderate protein-calorie malnutrition; D68.59 Other primary thrombophilia; E87.2 Acidosis; E86.0 Dehydration; E66.9 Obesity, unspecified; J45.909 Unspecified asthma, uncomplicated; Z79.899 Other long term (current) drug therapy; E87.6 Hypokalemia; I10 Essential (primary) hypertension
CPT/HCPCS: 36415; 36600; 71045-TC; 80048-TC; 80053-TC; 80061-TC; 80076-TC; 81001; 82248-TC; 82550-TC; 82728-TC; 82803-TC; 82962-TC; 83605-TC; 83615-TC; 83735-TC; 83880; 84100-TC; 84155; 84165; 84484-TC; 84702-TC; 85025-TC; 85378-TC; 85385-TC; 85610-TC; 85730-TC; 86140-TC; 86850-TC; 87040-TC; 87081-TC; 87086-TC; 93307-TC; 97116-TC; 97530-TC; A4216; G0378; J0696; J1100; J1650; J7030; J7050; J7060; P9017-BL; U0003